=== PATIENT | female | born 1955 | race Two or more races ===

== ENCOUNTER → 2024-08-27 | Outpatient (CLI) | payer OTHER, SELFPAY ==
--- NOTE | 2024-08-27 11:00 | XR_ITS ---
Examination: Screening digital mammography, bilateral Computer aided detection 3-D breast Tomosynthesis, bilateral Date and time of exam: August 27, 2024 0953 hours Compared to mammograms dating to October 31, 2006 Indication: Screening Technique: Nonmagnified MLO, CC views of the breasts to been obtained, reconstructed from 3-D Tomosynthesis images. R2 computer aided detection program utilized for evaluation of suspicious masses and/or abnormal calcifications. 3-D Tomosynthesis images obtained. Findings: Scattered areas of fibroglandular density. Benign calcifications. No interval suspicious masses Impression: BI-RADS category II: Benign Findings. Recommend 1 year follow-up mammogram.
== END | disposition home or self-care (01) ==
PROVIDERS: Referring Provider Physician Assistant; Visit Provider Physician Assistant
DX: Z12.31 Encounter for screening mammogram for malignant neoplasm of breast (principal); R92.1 Mammographic calcification found on diagnostic imaging of breast; R92.323 Mammographic fibroglandular density, bilateral breasts
CPT/HCPCS: 77063; 77067

== ENCOUNTER → 2024-10-11 | Outpatient (CLI) | payer OTHER, SELFPAY ==
--- NOTE | 2024-10-11 13:00 | XR_ITS ---
Examination: Bone densitometry Date and time of exam:October 11, 2024 1336 hours INDICATION: Menopause age 47 vitamin D calcium beginning one year ago Technique: Lumbar spine and hip total bone mineralization values of an calculated. Peak reference and age match control results have been displayed. Findings: Lumbar spine total bone mineralization is1.035 gm/cm2. This is 0.1 standard deviations below peak reference. This is 1.8 standard deviations above age-matched controls. Hip total bone mineralization is 0.921 gm/cm2 This is 0.2 standard deviations below peak reference. This is 1.2 standard deviations above age-matched controls Impression: There is normal mineralization based on lumbar spine measurements. There is osteopenia based on hip measurements
== END | disposition home or self-care (01) ==
PROVIDERS: PCP Physician Assistant; Referring Provider Physician Assistant; Visit Provider Physician Assistant
DX: M85.88 Other specified disorders of bone density and structure, other site (principal)
CPT/HCPCS: 77080

== ENCOUNTER 2024-11-10 12:10 | Emergency (ER) | payer OTHER, SELFPAY ==
[2024-11-10 12:11] VITALS: BMI 30.2
[2024-11-10 12:50] VITALS: BP 110/68; PULSE 87; RESP 18; TEMP 36.9; O2SAT 98
--- NOTE | 2024-11-10 13:24 | XR_ITS ---
Exam: Chest PA, lateral 2 views Technique: Chest upright PA lateral 2 views Date and time of exam: 11/10/2024, 1:26 PM INDICATION: Cough COMPARISON: 01/12/2018 Findings: Mild peribronchial thickening Normal heart size. No mediastinal adenopathy. No acute fracture No pulmonary edema or pneumonia. Impression: Mild peribronchial inflammation. No focal mass or infiltrate
--- NOTE | 2024-11-10 13:25 | PD.EDURI ---
Upper Respiratory Inf. RME/HPI General Chief Complaint: Flu Like Symptoms Stated Complaint: FLU LIKE SYMPTOMS Time Seen by Provider: 11/10/24 12:49 Arrival date/time: 11/10/24 12:10 Limitations: no limitations RME / HPI RME / HPI Narrative: 69-year-old diabetic female here for cough runny nose and bodyaches for 5 days. Complains of fever as well. Throughout the week that she has been sick did not swab for COVID. Does have history of asthma as well. Non-smoker. Has been using Promethazine DM with no relief. And her inhaler as well. Related Data Home Medications ?Medication ?Instructions ?Recorded ?Confirmed aspirin 81 mg chewable tablet 81 mg PO QDAY ##0 05/29/14 01/13/18 lisinopril 20 mg tablet 20 mg PO QDAY #0 tabs 05/29/14 01/12/18 simvastatin 20 mg tablet (Zocor) 20 mg PO HS #0 tabs 05/29/14 01/12/18 ergocalciferol (vitamin D2) 1,250 50,000 unit PO QWEEK 01/12/18 01/12/18 mcg (50,000 unit) capsule (Vitamin D2) metformin 500 mg tablet 500 mg PO BID 01/12/18 01/12/18 tramadol 50 mg tablet 50 mg PO BIDPRN PRN Pain 01/13/18 01/13/18 Previous Rx's ?Medication ?Instructions ?Recorded albuterol sulfate 90 mcg/actuation 2 puff inhalation Q6H PRN 11/10/24 aerosol inhaler (Ventolin HFA) bronchospasm #6.7 grams azithromycin 250 mg tablet See Rx Instructions PO .COMPLEX #6 11/10/24 (Zithromax Z-Keith) tabs prednisone 20 mg tablet See Taper PO QDAY 5 days #10 tabs 11/10/24 promethazine-DM 6.25 mg-15 mg/5 mL 5 ml PO Q6H #240 mL 11/10/24 oral syrup Allergies Allergy/AdvReac Type Severity Reaction Status Date / Time No Known Allergies Allergy Verified 01/13/18 10:09 Review of Systems Review of Systems Systems Reviewed: All systems reviewed, normal except as documented Constitutional Constitutional: Reports fever(s) Respiratory Respiratory: Reports as per HPI ED Exam General Limitations: Present no limitations General appearance: Present alert and in no apparent distress Head Head exam: Present atraumatic Eye Eye exam: Present normal appearance, PERRL and EOMI ENT ENT exam: Present mucous membranes moist, TM's normal bilaterally and other (Boggy nasal turbinates with rhinorrhea) Neck Neck exam: Present normal inspection, full ROM and trachea midline Chest Chest inspection: Present normal inspection and symmetric chest wall rise Respiratory Respiratory exam: Present other (Scattered rhonchi and faint wheezing) Cardiovascular Cardiovascular exam: Present regular rate, normal rhythm and normal heart sounds Abdominal Exam Abdominal exam: Present soft and normal bowel sounds Extremities Exam Extremities exam: Present normal inspection and full ROM Back Exam Back exam: Present normal inspection and full ROM Skin Skin exam: Present warm, dry, intact and normal color Course Quality Measures none Orders Category Date Time Status XR chest 2V Stat Exams 11/10/24 13:24 Completed Dexamethasone Inj [Decadron Inj] Med 11/10/24 13:53 Discontinued 10 mg PO X1 ONE Vital Signs Vital signs: Vital Signs Temperature 98.4 F 11/10/24 12:50 Pulse Rate 87 11/10/24 12:50 Respiratory Rate 18 11/10/24 12:50 Blood Pressure 110/68 11/10/24 12:50 Pulse Oximetry (%) 98 11/10/24 12:50 Oxygen Delivery Method Room Air 11/10/24 12:50 Upper Respiratory Infection Patient data External records reviewed:: [facility] previous records Clinical information provided by:: patient Social determinants that could affect healthcare access:: other (specify) (PCP does not have appointment on weekends) Patient has the following chronic illnesses:: DM asthma How is presenting disease/condition affected by chronic disease/condition?: exacerbated by Evaluation data The following diagnostics were reviewed and interpreted by me:: lab results and radiology exam(s) Lab and/or radiology exams considered but not ordered:: Blood of course considered however unlikely to change the course of treatment Interpretation Summary: X-ray did not show pneumonia however there is peribronchial cuffing Medications / Prescriptions Medications or Prescriptions considered but not ordered:: Considered IM antibiotics however opted for oral instead Medication administrations:: Medication Administration History Discontinued Medications Dexamethasone Sodium Phosphate (Dexamethasone Sod Phos Inj 10 Mg/Ml Vial) 10 mg PO X1 ONE Stop: 11/10/24 13:54 Last Admin: 11/10/24 14:07 Dose: 10 mg Documented By: CN See above Consultations Consultation(s) initiated? (list below): No Diagnosis Upper Respiratory Differential Diagnosis: upper respiratory infection, otitis media, sinusitis, viral infection, bronchitis, pharyngitis and other (Flu COVID) Most likely diagnosis given after review of the tests above:: Cough suspect patient had COVID but missed the window for positive test Wheezing with history of asthma Admission Indicated Admission indicated?: not indicated Admission Request Was there a request for admission?: No Disposition Plan Disposition Plan: Discharge Discharge Attestation Discharge Attestation: The patient and all family members were given an opportunity to ask questions and understood the discharge instructions. Discharge instructions specifically effects, indications for sooner follow up or return to the emergency department, and the expected course of current diagnosis. Patient condition: Stable Discharge Plan Plan Patient Disposition: HOME (Self Care) Discharge Disposition comment: f/.u in 2-3days Prescriptions/Referrals Prescriptions/Med Rec: New prednisone 20 mg tablet See Taper PO QDAY 5 Days Qty: 10 0RF Taper: Prednisone Taper 20 mg DAILY for 2 Days and 0 Hour 10 mg DAILY for 2 Days and 0 Hour 5 mg DAILY for 7 Days and 0 Hour promethazine-DM 6.25-15 mg/5 mL syrup 5 ml PO Q6H Qty: 240 0RF azithromycin [Zithromax Z-Keith] 250 mg tablet See Rx Instructions PO .COMPLEX Qty: 6 0RF Rx Instructions: take 500 mg today (day 1), then 250 mg for 4 days (days 2-5) albuterol sulfate [Ventolin HFA] 90 mcg/actuation HFA aerosol inhaler 2 puff inhalation Q6H PRN (Reason: bronchospasm) Qty: 6.7 0RF No Action lisinopril 20 MG tablet 20 mg PO QDAY Qty: 0 simvastatin [Zocor] 20 MG tablet 20 mg PO HS Qty: 0 aspirin 81 MG tablet,chewable 81 mg PO QDAY Qty: 0 metformin 500 mg Tablet 500 mg PO BID ergocalciferol (vitamin D2) [Vitamin D2] 50,000 unit Capsule 50,000 unit PO QWEEK tramadol 50 mg Tablet 50 mg PO BIDPRN PRN (Reason: Pain) Problem List Clinical Impression: Cough, Wheezing Patient/Caregiver Discharge Instructions Education Materials: ED Bronchitis with Wheezing (Adult) Print Language: Ukrainian Stand Alone Forms: [facility] Award Info., Patient Portal Info Letter PA/DISTRIBUTION [employer]ANSFORMER [employer]SEMBLER Supervising Physician PA/DISTRIBUTION TRANSFORMER ASSEMBLER Supervising Physician: Dr. Guillaume
[2024-11-10] MEDS: DEXAMETHASONE SOD PHOS INJ 10 MG/ML VIAL PO (14:07)
[2024-11-10 14:08] VITALS: BP 140/78; PULSE 86; RESP 20; TEMP 36.6; O2SAT 100
== END 2024-11-10 14:09 | disposition home or self-care (01) ==
LOC: SERX 14:06
PROVIDERS: Emergency Provider Family Medicine
DX: R05.9 Cough, unspecified (principal); R06.2 Wheezing
CPT/HCPCS: 71046; 87400; 87811; 99283; J1100